=== PATIENT | female | born 1950 | race African-American/Black ===

== ENCOUNTER → 2019-09-29 | Outpatient (CLI) | payer MEDICARE, BC ==
[~2019-09-29] MED LIST: AZIT250T12 PO; HYDR200T35 PO
== END | disposition home or self-care (01) ==
LOC: RAD 11:38
PROVIDERS: ATTEND Thoracic Surgery (Cardiothoracic Vascular Surgery)
DX: J18.9 Pneumonia, unspecified organism (principal); M46.04 Spinal enthesopathy, thoracic region; Q25.46 Tortuous aortic arch
CPT/HCPCS: 71046